=== PATIENT | female | born 1965 | race Caucasian/White ===

== ENCOUNTER 2021-01-09 08:24 | Day surgery (SDC) | payer BC ==
[2021-01-09 08:48] VITALS: BMI 24.5
[2021-01-09] MEDS ORDERED: ACETAMINOPHEN 325 MG TABLET (FP) ONE (10:13)
[2021-01-09] MEDS ORDERED: ACETAMINOPHEN 325 MG TABLET (FP) PO PRN (10:43)
[2021-01-09 11:04] VITALS: TEMP 97.6
[2021-01-09 11:07] VITALS: BP 101/51; PULSE 66
== END 2021-01-09 10:45 | disposition home or self-care (01) ==
LOC: FASU-ENDO 08:24
PROVIDERS: ATTEND Internal Medicine Gastroenterology
PROC: 0DJD8ZZ Inspection of Lower Intestinal Tract, Via Natural or Artificial Opening Endoscopic (ICD-10-PCS; principal; 2021-01-09 09:40)
DX: Z12.11 Encounter for screening for malignant neoplasm of colon (principal)